=== PATIENT | male | born 1970 | race Caucasian/White ===

== ENCOUNTER 2020-10-05 15:03 | Inpatient (IN) | payer OTHER ==
[2020-10-05] MEDS ORDERED: SODIUM CHLORIDE 0.9% 1,000 ML IV STA (16:08)
[2020-10-05] MEDS ORDERED: ACETAMINOPHEN TAB 325 MG TAB PO STA (16:09)
[2020-10-05] MEDS ORDERED: IBUPROFEN 600 MG TAB PO STA (16:09)
[2020-10-05 16:39] LABS: Basophils # (A) 0.1 k/uL (0-0.2); Basophils % (A) 1 %; Eosinophils # (A) 0.1 k/uL (0-0.7); Eosinophils % (A) 1 %; HCT 45.7 % (39.0-53.0); HGB 15.4 gm/dL (13.0-17.5); Lymphocytes # (A) 1.9 k/uL (1.0-4.8); Lymphocytes % (A) 13 %; MCH 30.7 pg (25.0-35.0); MCHC 33.7 g/dL (31.0-37.0); MCV 91.1 fL (80.0-100.0); Mean Platelet Volume 6.6; Monocytes % (A) 7 %; Neutrophils # (A) 11.1 k/uL (1.3-7.7); Neutrophils % (A) 76 %; Platelet Count 435 k/uL (150-450); Poikilocytosis Slight; RBC 5.02 m/uL (4.30-5.90); RDW 13.7 % (11.5-15.5); WBC 14.7 k/uL (3.8-10.6)
[2020-10-05 16:48] LABS: ALT 33 U/L (4-49); AST 28 U/L (17-59); African American GFR (CKD) >90 (>60 ml/min/1.73 sqM); Albumin 3.9 g/dL (3.5-5.0); Alkaline Phosphatase 92 U/L (38-126); Amylase <30 U/L (30-110); Anion Gap 10 mmol/L; Blood Urea Nitrogen 9 mg/dL (9-20); Calcium 9.3 mg/dL (8.4-10.2); Carbon Dioxide 26 mmol/L (22-30); Chloride 94 mmol/L (98-107); Glucose 191 mg/dL (74-99); Lipase 33 U/L (23-300); Non-African American GFR(CKD) >90 (>60 ml/min/1.73 sqM); Potassium 4.3 mmol/L (3.5-5.1); Sodium 130 mmol/L (137-145); Total Bilirubin 1.3 mg/dL (0.2-1.3); Total Protein 7.3 g/dL (6.3-8.2)
[2020-10-05 17:21] LABS: Amorphous Sediment,Urine Rare /hpf; Appearance,Urine Cloudy (Clear); Bilirubin,Urine Negative (Negative); Blood,Urine Small (Negative); Color,Urine Yellow; Glucose,Urine (UA) Trace (Negative); Ketones,Urine Trace (Negative); Leukocyte Esterase,Urine Trace (Negative); Mucus,Urine Many /hpf; Nitrite,Urine Negative (Negative); PH, Urine 5.5 (5.0-8.0); Protein,Urine 2+ (Negative); RBC,Urine 2 /hpf (0-5); Specific Gravity,Urine 1.018 (1.001-1.035); WBC,Urine 5 /hpf (0-5)
--- NOTE | 2020-10-05 18:29 | CT ---
EXAMINATION TYPE: CT abdomen pelvis w con DATE OF EXAM: 10/05/2020 COMPARISON: None HISTORY: abdominal pain X [address] DLP: 2584.4 mGycm Automated exposure control for dose reduction was used. TECHNIQUE: Helical acquisition of images was performed from the lung bases through the pelvis. CONTRAST: Performed without Oral Contrast and with IV Contrast, patient injected with 100 mL of Isovue 300. FINDINGS: LUNG BASES: Right lower lobe calcified granuloma. Elevation of the left hemidiaphragm with left basil ar atelectasis. LIVER: Normal. BILIARY SYSTEM: Normal. PANCREAS: Normal. SPLEEN: Calcified granulomas. ADRENALS: Normal. KIDNEYS: Normal. BOWEL: No obstruction. There is proximal ascending colon thickening, inflammatory stranding, and abn ormal appearance of the appendix. Posterior to the cecum and within the region of the abnormal append ix there is a 4.5 x 3.7 x 6.2 cm fluid and gas collection. PERITONEUM: There is no sizable free air collection. There is no ascites. There is significant infla mmatory stranding in the right paracolic gutter. LYMPH NODES: No lymphadenopathy. PELVIS: Prominent prostate. Nondistended urinary bladder. VASCULATURE: No abdominal aortic aneurysm. MUSCULOSKELETAL: Degenerative changes of the spine. IMPRESSION: Thickening, irregularity, and inflammatory stranding of the appendix and proximal ascending colon. Nix spect acute appendicitis. A right lower quadrant fluid and gas collection within the region of the ab normal appendix measures 4.5 x 3.7 x 6.2 cm. Difficult to tell if this is associated with the abnorma lly dilated appendiceal lumen versus abscess. If clinically indicated, findings could be further eval uated with administration of oral contrast. No significant pneumoperitoneum or ascites. Dr. Jovanna Riojas discussed findings with YNOG Mullen via the phone on 10/05/2020 6:28 PM at 6:29 PM EST, and results were acknowledged.
[2020-10-05] MEDS ORDERED: PIPERACILLIN-TAZOBACTAM 3.375 GM in SODIUM CHLORIDE 0.9% 100 ML IVPB STA (18:32)
--- NOTE | 2020-10-05 18:33 | ED ---
Abdominal Pain HPI - General Chief Complaint: Abdominal Pain Stated Complaint: ABD pain Time Seen by Provider: 10/05/20 15:57 Source: patient Mode of arrival: ambulatory Limitations: no limitations - History of Present Illness Initial Comments: Patient is a 50-year-old male that presents to emergency room with a 2 day history of right lower quadrant pain. He notes that it started off as a mild discomfort. 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 He notes that he tried taking milk Magnesia fibrous foods drinking natural just to help with bowel movements. He notes that he had several bouts yesterday but it wasn't very much in quantity. He notes that it takes a lot of pain in the make of the ER. He notes that he was in significant amount of pain today that he came in for evaluation. He did not appear to be any discomfort while laying in bed in exam interview stating that his pain was a 3 out of 10 and does not any pain medication at this time. He was running a small fever. He denied any other issues or complaints at this time. 90 chest pain shortness breath headache nausea vomiting diarrhea constipation fever fatigue chills. - Related Data Home Medications Medication Instructions Recorded Confirmed Aspirin EC [Ecotrin Low Dose] 81 mg PO DAILY 10/05/20 10/05/20 Allergies Allergy/AdvReac Type Severity Reaction Status Date / Time No Known Allergies Allergy Verified 10/05/20 17:42 Review of Systems ROS Statement: Those systems with pertinent positive or pertinent negative responses have been documented in the HPI. ROS Other: All systems not noted in ROS Statement are negative. Past Medical History Past Medical History: Diabetes Mellitus History of Any Multi-Drug Resistant Organisms: None Reported Past Surgical History: No Surgical Hx Reported Past Psychological History: No Psychological Hx Reported Smoking Status: Never smoker Past Alcohol Use History: Occasional General Exam Limitations: no limitations General appearance: alert, in no apparent distress Head exam: Present: atraumatic, normocephalic, normal inspection Eye exam: Present: normal appearance, PERRL, EOMI. Absent: scleral icterus, conjunctival injection, periorbital swelling Respiratory exam: Present: normal lung sounds bilaterally Cardiovascular Exam: Present: regular rate, normal rhythm, normal heart sounds. Absent: systolic murmur, diastolic murmur, rubs, gallop, clicks GI/Abdominal exam: Present: soft, normal bowel sounds. Absent: distended, tenderness, guarding, rebound, rigid Expanded GI/Abdominal exam: Present: Rovsing's sign Extremities exam: Present: normal inspection, full ROM, normal capillary refill. Absent: tenderness, pedal edema, joint swelling, calf tenderness Neurological exam: Present: alert, oriented X3 Psychiatric exam: Present: normal affect, normal mood Skin exam: Present: warm, dry, intact, normal color. Absent: rash Course Vital Signs 10/05/20 10/05/20 15:05 18:01 Temperature 100.3 F H 98.1 F Pulse Rate 103 H 70 Respiratory 14 16 Rate Blood Pressure 144/99 137/72 O2 Sat by Pulse 96 95 Oximetry Medical Decision Making - Medical Decision Making 50-year-old male complaining of lower abdominal pain for the past 2 days. Labs, 1 L normal saline, 600 mg of Motrin, 650 mg of Tylenol, CT of the abdomen and pelvis ordered. Labs White blood cells 14.7 urine shows mild dehydration. Rest of labs unremarkable. Computed tomography scan shows acute appendicitis with possible abscess. 3.375 g of Zosyn ordered Case discussed with Dr. Keita, patient will be admitted. Dr. Barbosa was consulted and will accept the admit. - Lab Data Result diagrams: 10/05/20 16:25 10/05/20 16:25 Lab Results 10/05/20 10/05/20 10/05/20 Range/Units 16:25 16:25 16:25 WBC 14.7 H (3.8-10.6) k/uL RBC 5.02 (4.30-5.90) m/uL Hgb 15.4 (13.0-17.5) gm/dL Hct 45.7 (39.0-53.0) % MCV 91.1 (80.0-100.0) fL MCH 30.7 (25.0-35.0) pg MCHC 33.7 (31.0-37.0) g/dL RDW 13.7 (11.5-15.5) % Plt Count 435 (150-450) k/uL MPV 6.6 Neutrophils % 76 % Lymphocytes % 13 % Monocytes % 7 % Eosinophils % 1 % Basophils % 1 % Neutrophils # 11.1 H (1.3-7.7) k/uL Lymphocytes # 1.9 (1.0-4.8) k/uL Monocytes # 1.0 (0-1.0) k/uL Eosinophils # 0.1 (0-0.7) k/uL Basophils # 0.1 (0-0.2) k/uL Poikilocytosis Slight Sodium 130 L (137-145) mmol/L Potassium 4.3 (3.5-5.1) mmol/L Chloride 94 L (98-107) mmol/L Carbon Dioxide 26 (22-30) mmol/L Anion Gap 10 mmol/L BUN 9 (9-20) mg/dL Creatinine 0.75 (0.66-1.25) mg/dL Est GFR (CKD-EPI)AfAm >90 (>60 ml/min/1.73 sqM) Est GFR (CKD-EPI)NonAf >90 (>60 ml/min/1.73 sqM) Glucose 191 H (74-99) mg/dL Plasma Lactic Acid Rylan 1.3 (0.7-2.0) mmol/L Calcium 9.3 (8.4-10.2) mg/dL Total Bilirubin 1.3 (0.2-1.3) mg/dL AST 28 (17-59) U/L ALT 33 (4-49) U/L Alkaline Phosphatase 92 (38-126) U/L Troponin I (0.000-0.034) ng/mL Total Protein 7.3 (6.3-8.2) g/dL Albumin 3.9 (3.5-5.0) g/dL Amylase <30 L (30-110) U/L Lipase 33 (23-300) U/L Urine Color Urine Appearance (Clear) Urine pH (5.0-8.0) Ur Specific Theresa (1.001-1.035) Urine Protein (Negative) Urine Glucose (UA) (Negative) Urine Ketones (Negative) Urine Blood (Negative) Urine Nitrite (Negative) Urine Bilirubin (Negative) Urine Urobilinogen (<2.0) mg/dL Ur Leukocyte Esterase (Negative) Urine RBC (0-5) /hpf Urine WBC (0-5) /hpf Amorphous Sediment (None) /hpf Urine Mucus (None) /hpf 10/05/20 10/05/20 Range/Units 16:25 17:11 WBC (3.8-10.6) k/uL RBC (4.30-5.90) m/uL Hgb (13.0-17.5) gm/dL Hct (39.0-53.0) % MCV (80.0-100.0) fL MCH (25.0-35.0) pg MCHC (31.0-37.0) g/dL RDW (11.5-15.5) % Plt Count (150-450) k/uL MPV Neutrophils % % Lymphocytes % % Monocytes % % Eosinophils % % Basophils % % Neutrophils # (1.3-7.7) k/uL Lymphocytes # (1.0-4.8) k/uL Monocytes # (0-1.0) k/uL Eosinophils # (0-0.7) k/uL Basophils # (0-0.2) k/uL Poikilocytosis Sodium (137-145) mmol/L Potassium (3.5-5.1) mmol/L Chloride (98-107) mmol/L Carbon Dioxide (22-30) mmol/L Anion Gap mmol/L BUN (9-20) mg/dL Creatinine (0.66-1.25) mg/dL Est GFR (CKD-EPI)AfAm (>60 ml/min/1.73 sqM) Est GFR (CKD-EPI)NonAf (>60 ml/min/1.73 sqM) Glucose (74-99) mg/dL Plasma Lactic Acid Rylan (0.7-2.0) mmol/L Calcium (8.4-10.2) mg/dL Total Bilirubin (0.2-1.3) mg/dL AST (17-59) U/L ALT (4-49) U/L Alkaline Phosphatase (38-126) U/L Troponin I <0.012 (0.000-0.034) ng/mL Total Protein (6.3-8.2) g/dL Albumin (3.5-5.0) g/dL Amylase (30-110) U/L Lipase (23-300) U/L Urine Color Yellow Urine Appearance Cloudy (Clear) Urine pH 5.5 (5.0-8.0) Ur Specific Theresa 1.018 (1.001-1.035) Urine Protein 2+ H (Negative) Urine Glucose (UA) Trace H (Negative) Urine Ketones Trace H (Negative) Urine Blood Small H (Negative) Urine Nitrite Negative (Negative) Urine Bilirubin Negative (Negative) Urine Urobilinogen 3.0 (<2.0) mg/dL Ur Leukocyte Esterase Trace H (Negative) Urine RBC 2 (0-5) /hpf Urine WBC 5 (0-5) /hpf Amorphous Sediment Rare H (None) /hpf Urine Mucus Many H (None) /hpf - EKG Data -: EKG Interpreted by Me EKG shows normal: sinus rhythm Rate: normal EKG Comments: Ventricular rate 82 bpm, WV interval 206 ms, QRS duration 98 ms, QTC 439 ms, PRT axes 26/-14/-7. Normal sinus rhythm, inferior infarct age undetermined, abnormal ECG. - Radiology Data Radiology results: report reviewed, image reviewed CT the abdomen and pelvis: Thickening irregularity inflammatory straining of the appendix and proximal ascending: Suspect acute appendicitis. A right lower quadrant fluid and gas collection with in the region. Normal appendix measures 4.5 x 3.7 x 6.2 cm. Difficult to tell if this is associated with the abnormally dilated appendiceal lumen versus abscess. If clinically indicated findings to be further evaluated administration of oral contrast no significant pneumoperitoneum ascites. Disposition Clinical Impression: Abdominal pain, Acute appendicitis Disposition: ADMITTED IP TO THIS HOSP Condition: Stable Is patient prescribed a controlled substance at d/c from ED?: No Referrals: Julius Coyle DO [Primary Care Provider] - 1-2 days Time of Disposition: 18:58
[2020-10-05] MEDS ORDERED: NALOXONE 0.4 MG/ML 1 ML VIAL IV PRN ×2 (18:58→21:03)
[2020-10-05] MEDS ORDERED: ACETAMINOPHEN TAB 325 MG TAB PO PRN (18:58)
[2020-10-05] MEDS: SODIUM CHLORIDE 0.9% 1,000 ML IV SCH (19:45)
[2020-10-05] MEDS ORDERED: KETOROLAC 15 MG/ML 1 ML VIAL ONE (20:20)
[2020-10-05] MEDS ORDERED: MIDAZOLAM 2 MG/2 ML VIAL ONE (20:20)
[2020-10-05] MEDS ORDERED: NEOSTIGMINE 1 MG/ML 10 ML VIAL ONE (20:20)
[2020-10-05] MEDS ORDERED: LIDOCAINE 1% INJ 10MG/ML (20 ML MDV) ONE (20:20)
[2020-10-05] MEDS ORDERED: SUCCINYLCHOLINE CHLORIDE 100 MG/5 ML SYR IV ONE (20:20)
[2020-10-05] MEDS ORDERED: CLINDAMYCIN 150 MG/ML 4 ML VIAL ONE (20:20)
[2020-10-05] MEDS ORDERED: ONDANSETRON 4 MG/2 ML VIAL ONE (20:20)
[2020-10-05] MEDS ORDERED: ROCURONIUM 10 MG/ML (5 ML VIAL) IV ONE (20:20)
[2020-10-05] MEDS ORDERED: GLYCOPYRROLATE 0.2 MG/ML 2 ML VIAL ONE (20:20)
[2020-10-05] MEDS ORDERED: fentaNYL (PF) 50 MCG/ML 2 ML AMP ONE (20:20)
[2020-10-05] MEDS ORDERED: IV FLUID CONTINUATION 1,000 ML IV ONE (20:20)
[2020-10-05] MEDS ORDERED: PROPOFOL 10 MG/ML 20 ML VIAL IV ONE (20:20)
--- NOTE | 2020-10-05 20:23 | P.GSHP ---
History of Present Illness H&P Date: 10/05/20 Chief Complaint: Right lower quadrant pain Is a 50-year-old male with a one-week history of right lower quadrant pain. Patient's emergency found have appendicitis with evidence of abscess Past Medical History Past Medical History: Diabetes Mellitus History of Any Multi-Drug Resistant Organisms: None Reported Past Surgical History: No Surgical Hx Reported Past Psychological History: No Psychological Hx Reported Smoking Status: Never smoker Past Alcohol Use History: Occasional Medications and Allergies Home Medications Medication Instructions Recorded Confirmed Type Aspirin EC [Ecotrin Low Dose] 81 mg PO DAILY 10/05/20 10/05/20 History Allergies Allergy/AdvReac Type Severity Reaction Status Date / Time No Known Allergies Allergy Verified 10/05/20 17:42 Surgical - Exam Vital Signs Temp Pulse Resp BP Pulse Ox 100.3 F H 103 H 14 144/99 96 10/05/20 15:05 10/05/20 15:05 10/05/20 15:05 10/05/20 15:05 10/05/20 15:05 - General well developed, well nourished, no distress - Eyes PERRL - ENT normal pinna - Neck no masses - Respiratory normal expansion - Cardiovascular Rhythm: regular - Abdomen Tender right lower quadrant Abdomen: soft Results - Labs 10/05/20 16:25 10/05/20 16:25 Abnormal Lab Results - Last 24 Hours (Table) 10/05/20 10/05/20 10/05/20 Range/Units 16:25 16:25 17:11 WBC 14.7 H (3.8-10.6) k/uL Neutrophils # 11.1 H (1.3-7.7) k/uL Sodium 130 L (137-145) mmol/L Chloride 94 L (98-107) mmol/L Glucose 191 H (74-99) mg/dL Amylase <30 L (30-110) U/L Urine Protein 2+ H (Negative) Urine Glucose (UA) Trace H (Negative) Urine Ketones Trace H (Negative) Urine Blood Small H (Negative) Ur Leukocyte Esterase Trace H (Negative) Amorphous Sediment Rare H (None) /hpf Urine Mucus Many H (None) /hpf Diabetes panel 10/05/20 Range/Units 16:25 Sodium 130 L (137-145) mmol/L Potassium 4.3 (3.5-5.1) mmol/L Chloride 94 L (98-107) mmol/L Carbon Dioxide 26 (22-30) mmol/L BUN 9 (9-20) mg/dL Creatinine 0.75 (0.66-1.25) mg/dL Glucose 191 H (74-99) mg/dL Calcium 9.3 (8.4-10.2) mg/dL AST 28 (17-59) U/L ALT 33 (4-49) U/L Alkaline Phosphatase 92 (38-126) U/L Total Protein 7.3 (6.3-8.2) g/dL Albumin 3.9 (3.5-5.0) g/dL Calcium panel 10/05/20 Range/Units 16:25 Calcium 9.3 (8.4-10.2) mg/dL Albumin 3.9 (3.5-5.0) g/dL Pituitary panel 10/05/20 Range/Units 16:25 Sodium 130 L (137-145) mmol/L Potassium 4.3 (3.5-5.1) mmol/L Chloride 94 L (98-107) mmol/L Carbon Dioxide 26 (22-30) mmol/L BUN 9 (9-20) mg/dL Creatinine 0.75 (0.66-1.25) mg/dL Glucose 191 H (74-99) mg/dL Calcium 9.3 (8.4-10.2) mg/dL Adrenal panel 10/05/20 Range/Units 16:25 Sodium 130 L (137-145) mmol/L Potassium 4.3 (3.5-5.1) mmol/L Chloride 94 L (98-107) mmol/L Carbon Dioxide 26 (22-30) mmol/L BUN 9 (9-20) mg/dL Creatinine 0.75 (0.66-1.25) mg/dL Glucose 191 H (74-99) mg/dL Calcium 9.3 (8.4-10.2) mg/dL Total Bilirubin 1.3 (0.2-1.3) mg/dL AST 28 (17-59) U/L ALT 33 (4-49) U/L Alkaline Phosphatase 92 (38-126) U/L Total Protein 7.3 (6.3-8.2) g/dL Albumin 3.9 (3.5-5.0) g/dL Assessment and Plan Assessment: Acute appendicitis. Patient will undergo laparoscopic appendectomy. The risks of open appendectomy was discussed with patient.
[2020-10-05] MEDS ORDERED: LIDOCAINE 1%-EPI 1:100,000 20 ML VIAL SQ ONE (20:38)
[2020-10-05] MEDS ORDERED: LACTATED RINGERS 1,000 ML IV ONE ×2 (20:45→21:03)
--- NOTE | 2020-10-05 21:07 | P.OP ---
Date of Procedure: 10/05/20 Preoperative Diagnosis: Acute appendicitis Postoperative Diagnosis: Ruptured appendicitis with abscess Procedure(s) Performed: Laparoscopic appendectomy Anesthesia: CORRINE Surgeon: Sandeep Stanley Estimated Blood Loss (ml): 5 Pathology: other (Appendiceal remnant) Condition: stable Disposition: PACU Description of Procedure: The patient's placed on the operating table in the supine position. The patient received general anesthesia. The abdomen was prepped and draped in the usual sterile fashion. The skin was anesthetized 1% local Xylocaine at the trocar sites. Using an 11 blade the skin was incised at the umbilicus. The umbilicus was grasped with a Pablo clamp and then a Veress needle was placed into the peritoneal cavity. Position of the Veress needle was confirmed with positive drop test. After adequate insufflation a 5 mm trocar was placed into the peritoneal cavity. The abdomen was further insufflated. And then the laparoscope was placed in the peritoneal cavity. Next a 5 mm trocar was placed in the midline suprapubic position. And then a 10 mm trocar was placed in the midline epigastric position. The patient was rotated with the right side up and in Trendelenburg. There was a significant inflammatory response in the right lower quadrant. There was omentum stuck in her lower quadrant. The omentum was dissected with traction. An appendiceal abscess was entered. This was aspirated approximately 30 mL. Fluid was aspirated. At this point the cecal base was examined. The appendix appeared to be obliterated there was a small appendiceal stump this was ligated with the Endoloop. The area of the abscess cavity was dissected and the remainder the appendix was dissected free and sent to pathology. The abdomen abdomen was irrigated a VIVIAN drains placed in the esophagus and brought through the midline 5 mm trocar site. The trochars withdrawn. Skin was closed with interrupted 3-0 Monocryl suture. Dermabond was applied.
[2020-10-05] MEDS ORDERED: ACETAMINOPHEN IV (For NPO) 1,000 MG/100 ML VIAL IVPB ONE (21:13)
[2020-10-05] MEDS: HYDROmorphone 0.5 MG/0.5 ML SYRINGE IVP PRN (21:25)
[2020-10-05] MEDS ORDERED: ACETAMINOPHEN IV (For NPO) 1,000 MG in EMPTY BAG 1 BAG IVPB ONE (21:30)
[2020-10-06] MEDS: PIPERACILLIN-TAZOBACTAM 3.375 GM in SODIUM CHLORIDE 0.9% 100 ML IVPB SCH ×3 (03:23→19:20)
[2020-10-06] MEDS: KETOROLAC 15 MG/ML 1 ML VIAL IVP SCH ×4 (03:24→17:11)
[2020-10-06] MEDS: HYDROmorphone 0.5 MG/0.5 ML SYRINGE IVP PRN ×3 (03:24→10:18)
[2020-10-06] MEDS: ONDANSETRON 4 MG/2 ML VIAL IVP PRN ×3 (03:30→23:52)
[2020-10-06] MEDS ORDERED: CALCIUM CARBONATE 500 MG CHEWABLE PO PRN (07:14)
[2020-10-06] MEDS: SODIUM CHLORIDE 0.9% 1,000 ML IV SCH ×4 (07:18→23:55)
[2020-10-06] MEDS: ENOXAPARIN 40 MG/0.4 ML SYRINGE SQ SCH (07:19)
[2020-10-06 09:21] LABS: HCT 42.2 % (39.6-50.0); MCH 30.2 pg (27.0-32.0); MCHC 33.2 g/dL (32.0-37.0); MCV 91.1 fL (80.0-97.0); Mean Platelet Volume 8.2 fL (9.5-12.2); Platelet Count 372 X 10*3/uL (140-440); RBC 4.63 X 10*6/uL (4.40-5.60); RDW 12.6 % (11.5-14.5)
[2020-10-06] MEDS: PANTOPRAZOLE 40 MG/10 ML VIAL IVP SCH (10:17)
--- NOTE | 2020-10-06 11:43 | P.PN ---
Subjective Progress Note Date: 10/06/20 CHIEF COMPLAINT: Acute appendicitis HISTORY OF PRESENT ILLNESS: Patient is status post laparoscopic appendectomy for ruptured appendicitis with abscess. Patient is complaining of severe heartburn with acid reflux and indigestion. He is having abdominal pain. Denies any vomiting. No flatus or BM. Afebrile. WBC is down from 14.7-11.20 PHYSICAL EXAM: VITAL SIGNS: Reviewed. GENERAL: Well-developed in no acute distress. HEENT: No sclera icterus. Extraocular movements grossly intact. Moist buccal mucosa. Head is atraumatic, normocephalic. ABDOMEN: Soft. Mildly distended. Incision sites clean dry and intact NEUROLOGIC: Alert and oriented. Cranial nerves II through XII grossly intact. ASSESSMENT: 1. Ruptured appendicitis with abscess status post laparoscopic appendectomy PLAN: -Add IV Protonix daily for heartburn and indigestion -Continue Tums as needed -Continue clear liquid diet -Continue antibiotics -Continue pain medication as needed -Encourage patient to ambulate and use incentive spirometer -GI prophylaxis Protonix and DVT prophylaxis Lovenox Physician Integrity Analyst note has been reviewed by physician. Signing provider agrees with the documented findings, assessment, and plan of care. Objective - Vital Signs Vital signs: Vital Signs Temp 98.4 F 10/06/20 10:09 Pulse 94 10/06/20 10:09 Resp 20 10/06/20 10:09 BP 139/86 10/06/20 10:09 Pulse Ox 92 L 10/06/20 10:09 Intake & Output 10/05/20 10/06/20 10/06/20 18:59 06:59 18:59 Intake Total 1000 Output Total 940 Balance 60 Weight 127.686 kg 127.686 kg Intake: IV 1000 Output: Drainage 130 Abdomen 130 Urine 800 Estimated Blood Loss 10 Other: Voiding Method Urinal # Bowel Movements 0 - Labs CBC & Chem 7: 10/06/20 05:28 10/05/20 16:25 Labs: Abnormal Lab Results - Last 24 Hours (Table) 10/05/20 10/05/20 10/05/20 Range/Units 16:25 16:25 17:11 WBC 14.7 H (3.8-10.6) k/uL MPV (9.5-12.2) fL Neutrophils # 11.1 H (1.3-7.7) k/uL Sodium 130 L (137-145) mmol/L Chloride 94 L (98-107) mmol/L Glucose 191 H (74-99) mg/dL Amylase <30 L (30-110) U/L Urine Protein 2+ H (Negative) Urine Glucose (UA) Trace H (Negative) Urine Ketones Trace H (Negative) Urine Blood Small H (Negative) Ur Leukocyte Esterase Trace H (Negative) Amorphous Sediment Rare H (None) /hpf Urine Mucus Many H (None) /hpf 10/06/20 Range/Units 05:28 WBC 11.20 H (3.8-10.6) k/uL MPV 8.2 L (9.5-12.2) fL Neutrophils # (1.3-7.7) k/uL Sodium (137-145) mmol/L Chloride (98-107) mmol/L Glucose (74-99) mg/dL Amylase (30-110) U/L Urine Protein (Negative) Urine Glucose (UA) (Negative) Urine Ketones (Negative) Urine Blood (Negative) Ur Leukocyte Esterase (Negative) Amorphous Sediment (None) /hpf Urine Mucus (None) /hpf
[2020-10-06 13:10] LABS: Basophils # (A) 0.05 X 10*3/uL (0.00-0.10); Basophils % (A) 0.4 %; Eosinophils # (A) 0.01 X 10*3/uL (0.04-0.35); Eosinophils % (A) 0.1 %; Lymphocytes # (A) 0.88 X 10*3/uL (0.90-5.00); Lymphocytes % (A) 7.9 %; Monocytes # (A) 0.56 X 10*3/uL (0.20-1.00); Neutrophils # (A) 9.66 X 10*3/uL (1.80-7.70); Neutrophils % (A) 86.2 %
[2020-10-06 13:37] LABS: Albumin 3.6 g/dL (3.80-4.90); Albumin/Globulin Ratio 1.29 (1.60-3.17); Anion Gap 14.4 mmol/L (4.00-12.00); Calcium 8.7 mg/dL (8.7-10.3); Carbon Dioxide 22.6 mmol/L (21.6-31.8); Globulin 2.8 g/dL (1.6-3.3); Non-African American GFR(CKD) 102.7 (60.0-200.0); Potassium 4.5 mmol/L (3.5-5.5); Total Bilirubin 1.5 mg/dL (0.3-1.2); Total Protein 6.4 g/dL (6.2-8.2)
[2020-10-06] MEDS: HYDROcodone/APAP 5-325MG 1 EACH TAB PO PRN (19:20)
--- NOTE | 2020-10-06 23:28 | P.CONS ---
History of Present Illness - Reason for Consult Consult date: 10/06/20 Medical management. - Chief Complaint Abdominal pain - History of Present Illness Patient is a 50-year-old male with a known history of diabetes type 2 currently diet controlled presents to ER with complaints of right lower quadrant abdominal pain. Patient states that he has been having pain for the past 1 week. Patient is having on and off discomfort. Patient start to be constipated and took stool softeners. Since the pain is not improving he presents to ER for evaluation. Pain is 7 out of 10 in severity. Denied any diarrhea. Denies recent illnesses. On admission patient was febrile with T-max 100.3 respiration 14 blood pressure 144/99 pulse ox 96% on room air. CT of the abdomen pelvis showed thickening irregularity and inflammatory stranding at the appendix and proximal ascending colon. Suspected acute appendicitis. Right lower quadrant fluid and gas collection within the region of the abnormal appendix measures 4.5 x 3.7 x 6.2 cm. Laboratory showed WBC 14.7 hemoglobin 15.4 and platelets 435 Sodium 130 potassium 4.3 chloride 94 BUN 9 and creatinine 0.75 amylase lipase not elevated Troponin x1 - Urinalysis is negative for infection. Past Medical History Past Medical History: Diabetes Mellitus History of Any Multi-Drug Resistant Organisms: None Reported Past Surgical History: No Surgical Hx Reported Past Anesthesia/Blood Transfusion Reactions: No Reported Reaction Past Psychological History: No Psychological Hx Reported Smoking Status: Never smoker Past Alcohol Use History: Occasional Medications and Allergies Home Medications Medication Instructions Recorded Confirmed Type Aspirin EC [Ecotrin Low Dose] 81 mg PO DAILY 10/05/20 10/05/20 History Allergies Allergy/AdvReac Type Severity Reaction Status Date / Time No Known Allergies Allergy Verified 10/05/20 17:42 Physical Exam Vitals: Vital Signs Temp Pulse Pulse Pulse Resp BP BP 10/06/20 10:09 98.4 F 94 20 139/86 10/06/20 07:00 99.4 F 107 H 18 155/84 10/06/20 01:46 99.6 F 99 17 124/72 10/06/20 00:03 18 10/05/20 21:46 62 18 113/57 10/05/20 21:30 61 18 122/69 10/05/20 21:15 67 18 120/67 10/05/20 21:10 98 F 72 18 117/69 10/05/20 19:34 98.8 F 72 96 H 127/82 10/05/20 18:01 98.1 F 70 16 137/72 10/05/20 15:05 100.3 F H 103 H 14 144/99 Pulse Ox 10/06/20 10:09 92 L 10/06/20 07:00 91 L 10/06/20 01:46 92 L 10/06/20 00:03 10/05/20 21:46 96 10/05/20 21:30 98 10/05/20 21:15 98 10/05/20 21:10 95 10/05/20 19:34 96 10/05/20 18:01 95 10/05/20 15:05 96 Intake and Output 10/05/20 10/06/20 10/06/20 22:59 06:59 14:59 Intake Total 1000 Output Total 100 840 Balance 900 -840 Intake: IV 1000 Output: Drainage 90 40 Abdomen 90 40 Urine 800 Estimated Blood Loss 10 Other: Voiding Method Urinal # Bowel Movements 0 Weight 127.686 kg PHYSICAL EXAMINATION: Patient is lying in the bed comfortably, no acute distress, awake alert and oriented.. HEENT: Normocephalic. Neck is supple. Pupils reactive. Nostrils clear. Oral cavi ty is moist. Ears reveal no drainage. Neck reveals no JVD, carotid bruits, or thyromegaly. CHEST EXAMINATION: Trachea is central. Symmetrical expansion. Lung kelly clear to auscultation and percussion. Bibasilar diminished air entry. CARDIAC: Normal S1, S2 with no gallops. No murmurs ABDOMEN: Soft. Bowel sounds normal. No organomegaly. No abdominal bruits. Right lower quadrant tenderness. Extremities: reveal no edema. No clubbing or cyanosis Neurologically awake, alert, oriented x3 with well-coordinated movements. No focal deficits noted Skin: No rash or skin lesions. Psychiatric: Coperative. Nonsuicidal Musculoskeletal: No joint swelling or deformity. Normal range of motion. Results CBC & Chem 7: 10/06/20 05:28 10/06/20 05:28 Labs: Abnormal Lab Results - Last 24 Hours (Table) 10/05/20 10/05/20 10/05/20 Range/Units 16:25 16:25 17:11 WBC 14.7 H (3.8-10.6) k/uL MPV (9.5-12.2) fL Neutrophils # 11.1 H (1.3-7.7) k/uL Sodium 130 L (137-145) mmol/L Chloride 94 L (98-107) mmol/L Glucose 191 H (74-99) mg/dL Amylase <30 L (30-110) U/L Urine Protein 2+ H (Negative) Urine Glucose (UA) Trace H (Negative) Urine Ketones Trace H (Negative) Urine Blood Small H (Negative) Ur Leukocyte Esterase Trace H (Negative) Amorphous Sediment Rare H (None) /hpf Urine Mucus Many H (None) /hpf 10/06/20 Range/Units 05:28 WBC 11.20 H (3.8-10.6) k/uL MPV 8.2 L (9.5-12.2) fL Neutrophils # (1.3-7.7) k/uL Sodium (137-145) mmol/L Chloride (98-107) mmol/L Glucose (74-99) mg/dL Amylase (30-110) U/L Urine Protein (Negative) Urine Glucose (UA) (Negative) Urine Ketones (Negative) Urine Blood (Negative) Ur Leukocyte Esterase (Negative) Amorphous Sediment (None) /hpf Urine Mucus (None) /hpf Assessment and Plan Assessment: Acute appendicitis/ruptured appendicitis with abscess. Sepsis secondary to above. Patient was febrile and had leukocytosis on admission. Hypovolemic hyponatremia Hyperglycemia with uncontrolled diabetes type 2. GI and DVT prophylaxis. Plan: Patient is status post laparoscopic appendectomy with drain tube placement. Follow-up culture reports. Continue with antibiotics of Zosyn. Continue with pain management. Patient blood sugar is greater than 200. A1c was ordered. Continue with insulin sliding scale at this time and continue to follow closely. Further recommendations based on clinical course. Follow-up CBC and BMP tomorrow.
[2020-10-07] MEDS: KETOROLAC 15 MG/ML 1 ML VIAL IVP SCH ×4 (00:08→17:43)
[2020-10-07] MEDS: PIPERACILLIN-TAZOBACTAM 3.375 GM in SODIUM CHLORIDE 0.9% 100 ML IVPB SCH ×3 (02:28→17:43)
[2020-10-07] MEDS: PANTOPRAZOLE 40 MG/10 ML VIAL IVP SCH (07:49)
[2020-10-07] MEDS: ENOXAPARIN 40 MG/0.4 ML SYRINGE SQ SCH (07:51)
[2020-10-07] MEDS: INSULIN ASPART (NovoLOG) 100 UNIT/ML VIAL SQ SCH ×4 (07:51→20:27)
[2020-10-07 09:52] LABS: Anion Gap 10.3 mmol/L (4.00-12.00); BUN/Creat Ratio 16.25 Ratio (12.00-20.00); Calcium 8.2 mg/dL (8.7-10.3); Carbon Dioxide 23.7 mmol/L (21.6-31.8); Non-African American GFR(CKD) 102.7 (60.0-200.0); Potassium 5.1 mmol/L (3.5-5.5)
[2020-10-07 10:07] LABS: HCT 40.9 % (39.6-50.0); HGB 13.2 g/dL (13.0-17.0); MCH 29.5 pg (27.0-32.0); MCHC 32.3 g/dL (32.0-37.0); MCV 91.3 fL (80.0-97.0); Mean Platelet Volume 8.9 fL (9.5-12.2); Platelet Count 398 X 10*3/uL (140-440); RBC 4.48 X 10*6/uL (4.40-5.60); RDW 12.8 % (11.5-14.5); WBC 14.49 X 10*3/uL (4.50-10.00)
[2020-10-07] MEDS: SODIUM CHLORIDE 0.9% 1,000 ML IV SCH ×2 (10:35→17:44)
[2020-10-07 11:15] LABS: Basophils # (A) 0.03 X 10*3/uL (0.00-0.10); Basophils % (A) 0.2 %; Eosinophils # (A) 0.02 X 10*3/uL (0.04-0.35); Eosinophils % (A) 0.1 %; Lymphocytes # (A) 1.45 X 10*3/uL (0.90-5.00); Monocytes % (A) 4.1 %
--- NOTE | 2020-10-07 11:37 | P.PN ---
Subjective Progress Note Date: 10/07/20 CHIEF COMPLAINT: Acute appendicitis HISTORY OF PRESENT ILLNESS: Patient is status post laparoscopic appendectomy for ruptured appendicitis with abscess. Patient states that he is feeling better today. His heartburn has improved. He denies any nausea or vomiting. He did have a bowel movement. He did have a temp of 100.2 last night heart rate 107 his white count has increased from 11.2-14.49. Sodium 130 this morning patient is afebrile and tachycardia resolved. He does admit to mild cough. He says he has pain in the abdomen when taking in the deep breaths. PHYSICAL EXAM: VITAL SIGNS: Reviewed. GENERAL: Well-developed in no acute distress. HEENT: No sclera icterus. Extraocular movements grossly intact. Moist buccal mucosa. Head is atraumatic, normocephalic. ABDOMEN: Soft. Mildly distended. Incision sites clean dry and intact NEUROLOGIC: Alert and oriented. Cranial nerves II through XII grossly intact. ASSESSMENT: 1. Ruptured appendicitis with abscess status post laparoscopic appendectomy 2. Possible atelectasis contribute to fever and elevated white count PLAN: -Advance diet to full liquids -Continue antibiotics -Continue pain medication as needed -Encourage patient to ambulate and use incentive spirometer -GI prophylaxis Protonix and DVT prophylaxis Lovenox Physician School Bus Driver/Mechanic note has been reviewed by physician. Signing provider agrees with the documented findings, assessment, and plan of care. Objective - Vital Signs Vital signs: Vital Signs Temp 97.9 F 10/07/20 10:39 Pulse 92 10/07/20 07:04 Resp 16 10/07/20 10:39 BP 136/81 10/07/20 07:04 Pulse Ox 96 10/07/20 10:39 Intake & Output 10/06/20 10/07/20 10/07/20 18:59 06:59 18:59 Output Total 830 520 Balance -830 -520 Output: Drainage 30 20 Abdomen 30 20 Urine 800 500 Other: Voiding Method Urinal Urinal - Labs CBC & Chem 7: 10/07/20 05:29 10/07/20 05:29 Labs: Abnormal Lab Results - Last 24 Hours (Table) 10/06/20 10/06/20 10/07/20 Range/Units 05:28 05:28 05:29 WBC 14.49 H (4.50-10.00) X 10*3/uL Plt Count Comment A MPV 8.9 L (9.5-12.2) fL Immature Gran # 0.09 H (0.00-0.04) X 10*3/uL Neutrophils # 9.66 H 12.30 H (1.80-7.70) X 10*3/uL Lymphocytes # 0.88 L (0.90-5.00) X 10*3/uL Eosinophils # 0.01 L 0.02 L (0.04-0.35) X 10*3/uL Sodium 133 L (135-145) mmol/L Anion Gap 14.40 H (4.00-12.00) mmol/L Glucose 262 H (70-110) mg/dL Calcium (8.7-10.3) mg/dL Total Bilirubin 1.5 H (0.3-1.2) mg/dL Albumin 3.60 L (3.80-4.90) g/dL Albumin/Globulin Ratio 1.29 L (1.60-3.17) g/dL 10/07/20 Range/Units 05:29 WBC (4.50-10.00) X 10*3/uL Plt Count Comment MPV (9.5-12.2) fL Immature Gran # (0.00-0.04) X 10*3/uL Neutrophils # (1.80-7.70) X 10*3/uL Lymphocytes # (0.90-5.00) X 10*3/uL Eosinophils # (0.04-0.35) X 10*3/uL Sodium 130 L (135-145) mmol/L Anion Gap (4.00-12.00) mmol/L Glucose 233 H (70-110) mg/dL Calcium 8.2 L (8.7-10.3) mg/dL Total Bilirubin (0.3-1.2) mg/dL Albumin (3.80-4.90) g/dL Albumin/Globulin Ratio (1.60-3.17) g/dL
[2020-10-07 14:08] LABS: Hemoglobin A1C 10.2 % (4.0-6.0)
[2020-10-07 20:45] LABS: Glucose,Whole Blood 226 mg/dL (75-99)
[2020-10-07] MEDS: HYDROmorphone 0.5 MG/0.5 ML SYRINGE IVP PRN (23:18)
--- NOTE | 2020-10-08 01:17 | P.PN ---
Subjective Progress Note Date: 10/07/20 Principal diagnosis: Acute appendicitis/ruptured appendicitis with abscess. Patient is a 50-year-old male with a known history of diabetes type 2 currently diet controlled presents to ER with complaints of right lower quadrant abdominal pain. Patient states that he has been having pain for the past 1 week. Patient is having on and off discomfort. Patient start to be constipated and took stool softeners. Since the pain is not improving he presents to ER for evaluation. P ain is 7 out of 10 in severity. Denied any diarrhea. Denies recent illnesses. On admission patient was febrile with T-max 100.3 respiration 14 blood pressure 144/99 pulse ox 96% on room air. CT of the abdomen pelvis showed thickening irregularity and inflammatory stranding at the appendix and proximal ascending colon. Suspected acute appendicitis. Right lower quadrant fluid and gas collection within the region of the abnormal appendix measures 4.5 x 3.7 x 6.2 cm. Laboratory showed WBC 14.7 hemoglobin 15.4 and platelets 435 Sodium 130 potassium 4.3 chloride 94 BUN 9 and creatinine 0.75 amylase lipase not elevated Troponin x1 - Urinalysis is negative for infection. 10/07/2020 Patient is currently resting in the bed comfortably. More awake alert and oriented. Feels better today. Patient did have T-max of 100.2 yesterday evening. Currently afebrile. Encourage incentive spirometry. Denied any complaints of chest pain or shortness of breath. Tolerating liquid diet. Laboratory data showed WBC count increased to 14.4 today. Sodium 130 potassium 5.1 chloride 96 BUN 30 and creatinine 0.8 and blood sugar is 233. Patient is being continued on insulin sliding scale. A1c level is 10.2 patient will be started on low-dose insulin. Current medications reviewed. Objective - Vital Signs Vital signs: Vital Signs Temp 97.9 F 10/07/20 10:39 Pulse 92 10/07/20 07:04 Resp 16 10/07/20 10:39 BP 136/81 10/07/20 07:04 Pulse Ox 96 10/07/20 10:39 Intake & Output 10/06/20 10/07/20 10/07/20 18:59 06:59 18:59 Output Total 830 520 Balance -830 -520 Output: Drainage 30 20 Abdomen 30 20 Urine 800 500 Other: Voiding Method Urinal Urinal - Exam PHYSICAL EXAMINATION: Patient is lying in the bed comfortably, no acute distress, awake alert and oriented.. HEENT: Normocephalic. Neck is supple. Pupils reactive. Nostrils clear. Oral cavity is moist. Ears reveal no drainage. Neck reveals no JVD, carotid bruits, or thyromegaly. CHEST EXAMINATION: Trachea is central. Symmetrical expansion. Lung kelly clear to auscultation and percussion. Bibasilar diminished air entry. CARDIAC: Normal S1, S2 with no gallops. No murmurs ABDOMEN: Soft. Bowel sounds normal. No organomegaly. No abdominal bruits. Right lower quadrant tenderness. Extremities: reveal no edema. No clubbing or cyanosis Neurologically awake, alert, oriented x3 with well-coordinated movements. No focal deficits noted Skin: No rash or skin lesions. Psychiatric: Coperative. Nonsuicidal Musculoskeletal: No joint swelling or deformity. Normal range of motion. - Labs CBC & Chem 7: 10/07/20 05:29 10/07/20 05:29 Labs: Abnormal Lab Results - Last 24 Hours (Table) 10/06/20 10/06/20 10/07/20 Range/Units 05:28 05:28 05:29 WBC 14.49 H (4.50-10.00) X 10*3/uL Plt Count Comment A MPV 8.9 L (9.5-12.2) fL Immature Gran # 0.09 H (0.00-0.04) X 10*3/uL Neutrophils # 9.66 H 12.30 H (1.80-7.70) X 10*3/uL Lymphocytes # 0.88 L (0.90-5.00) X 10*3/uL Eosinophils # 0.01 L 0.02 L (0.04-0.35) X 10*3/uL Sodium 133 L (135-145) mmol/L Anion Gap 14.40 H (4.00-12.00) mmol/L Glucose 262 H (70-110) mg/dL Calcium (8.7-10.3) mg/dL Total Bilirubin 1.5 H (0.3-1.2) mg/dL Albumin 3.60 L (3.80-4.90) g/dL Albumin/Globulin Ratio 1.29 L (1.60-3.17) g/dL 10/07/20 Range/Units 05:29 WBC (4.50-10.00) X 10*3/uL Plt Count Comment MPV (9.5-12.2) fL Immature Gran # (0.00-0.04) X 10*3/uL Neutrophils # (1.80-7.70) X 10*3/uL Lymphocytes # (0.90-5.00) X 10*3/uL Eosinophils # (0.04-0.35) X 10*3/uL Sodium 130 L (135-145) mmol/L Anion Gap (4.00-12.00) mmol/L Glucose 233 H (70-110) mg/dL Calcium 8.2 L (8.7-10.3) mg/dL Total Bilirubin (0.3-1.2) mg/dL Albumin (3.80-4.90) g/dL Albumin/Globulin Ratio (1.60-3.17) g/dL Assessment and Plan Assessment: Temp 100.2, likley due to atelectasis. Resolved now. Encourage incentive spirometry. Acute appendicitis/ruptured appendicitis with abscess. Sepsis secondary to above. Patient was febrile and had leukocytosis on admission. Hypovolemic hyponatremia Hyperglycemia with uncontrolled diabetes type 2.A1c level 10.2 GI and DVT prophylaxis. Plan: Patient is status post laparoscopic appendectomy with drain tube placement. Follow-up culture reports. Continue with antibiotics of Zosyn. Continue with pain management. Patient blood sugar is greater than 200. A1c level 10.2 . Continue with insulin sliding scale at this time, added levemir and continue to follow closely. Further recommendations based on clinical course. Follow-up CBC and BMP tomorrow. Time with Patient: Greater than 30
[2020-10-08] MEDS: INSULIN DETEMIR (LEVEMIR) 100 UNIT/ML SYR SQ SCH ×2 (03:13→22:05)
[2020-10-08] MEDS: PIPERACILLIN-TAZOBACTAM 3.375 GM in SODIUM CHLORIDE 0.9% 100 ML IVPB SCH ×3 (03:14→19:42)
[2020-10-08] MEDS: SODIUM CHLORIDE 0.9% 1,000 ML IV SCH ×3 (03:14→20:23)
[2020-10-08 07:16] LABS: Glucose,Whole Blood 206 mg/dL (75-99)
[2020-10-08] MEDS: PANTOPRAZOLE 40 MG/10 ML VIAL IVP SCH (09:29)
[2020-10-08] MEDS: INSULIN ASPART (NovoLOG) 100 UNIT/ML VIAL SQ SCH ×4 (09:30→22:04)
[2020-10-08] MEDS: ENOXAPARIN 40 MG/0.4 ML SYRINGE SQ SCH (09:30)
[2020-10-08 09:31] LABS: Basophils # (A) 0.02 X 10*3/uL (0.00-0.10); Basophils % (A) 0.2 %; Eosinophils # (A) 0.07 X 10*3/uL (0.04-0.35); Eosinophils % (A) 0.6 %; HCT 37.1 % (39.6-50.0); HGB 12.3 g/dL (13.0-17.0); Lymphocytes # (A) 1.19 X 10*3/uL (0.90-5.00); Lymphocytes % (A) 10.4 %; MCH 30.1 pg (27.0-32.0); MCHC 33.2 g/dL (32.0-37.0); MCV 90.9 fL (80.0-97.0); Mean Platelet Volume 8.4 fL (9.5-12.2); Monocytes # (A) 0.48 X 10*3/uL (0.20-1.00); Monocytes % (A) 4.2 %; Neutrophils # (A) 9.57 X 10*3/uL (1.80-7.70); Neutrophils % (A) 83.6 %; Platelet Count 430 X 10*3/uL (140-440); RBC 4.08 X 10*6/uL (4.40-5.60); RDW 12.7 % (11.5-14.5); WBC 11.44 X 10*3/uL (4.50-10.00)
[2020-10-08 10:12] LABS: Anion Gap 10.3 mmol/L (4.00-12.00); Calcium 8.2 mg/dL (8.7-10.3); Carbon Dioxide 26.7 mmol/L (21.6-31.8); Non-African American GFR(CKD) 115.6 (60.0-200.0); Potassium 4.1 mmol/L (3.5-5.5)
--- NOTE | 2020-10-08 11:37 | P.PN ---
Subjective Progress Note Date: 10/08/20 CHIEF COMPLAINT: Acute appendicitis HISTORY OF PRESENT ILLNESS: Patient is status post laparoscopic appendectomy for ruptured appendicitis with abscess. Patient is feeling better each day. His pain is controlled. He is afebrile. Head minimal tachycardia with a heart rate of 103 now down to 90. Denies any nausea or vomiting. Tolerating diet. Having bowel movements. VIVIAN drain with 20 mL sanguinous output this morning. WBC turning downwards to 11.44 hemoglobin 12.3 blood sugar 206 Patient seen and examined with Dr. alvarenga PHYSICAL EXAM: VITAL SIGNS: Reviewed. GENERAL: Well-developed in no acute distress. HEENT: No sclera icterus. Extraocular movements grossly intact. Moist buccal mucosa. Head is atraumatic, normocephalic. ABDOMEN: Soft. Nondistended Incision sites clean dry and intact NEUROLOGIC: Alert and oriented. Cranial nerves II through XII grossly intact. ASSESSMENT: 1. Ruptured appendicitis with abscess status post laparoscopic appendectomy 2. Possible atelectasis contribute to fever and elevated white count PLAN: -Advance diet to regular -Continue antibiotics -Continue pain medication as needed -Encourage patient to ambulate in hallway and use incentive spirometer -Blood sugar management per medicine service -GI prophylaxis Protonix and DVT prophylaxis Lovenox Physician Tip Cementer note has been reviewed by physician. Signing provider agrees with the documented findings, assessment, and plan of care. Objective - Vital Signs Vital signs: Vital Signs Temp 98.4 F 10/08/20 08:28 Pulse 86 10/08/20 08:28 Resp 16 10/08/20 08:28 BP 120/74 10/08/20 08:28 Pulse Ox 93 L 10/08/20 08:28 Intake & Output 10/07/20 10/08/20 10/08/20 18:59 06:59 18:59 Intake Total 600 Output Total 1410 20 Balance 600 -1410 -20 Intake: Oral 600 Output: Drainage 10 20 Abdomen 10 20 Urine 1400 Other: Voiding Method Urinal Urinal # Voids 5 # Bowel Movements 1 1 - Labs CBC & Chem 7: 10/08/20 05:40 10/08/20 05:40 Labs: Abnormal Lab Results - Last 24 Hours (Table) 10/07/20 10/07/20 10/08/20 Range/Units 05:29 20:43 05:40 WBC 11.44 H (4.50-10.00) X 10*3/uL RBC 4.08 L (4.40-5.60) X 10*6/uL Hgb 12.3 L (13.0-17.0) g/dL Hct 37.1 L (39.6-50.0) % MPV 8.4 L (9.5-12.2) fL Immature Gran # 0.11 H (0.00-0.04) X 10*3/uL Neutrophils # 9.57 H (1.80-7.70) X 10*3/uL Glucose (70-110) mg/dL POC Glucose (mg/dL) 226 H (75-99) mg/dL Hemoglobin A1c 10.2 H (4.0-6.0) % Calcium (8.7-10.3) mg/dL 10/08/20 10/08/20 Range/Units 05:40 07:14 WBC (4.50-10.00) X 10*3/uL RBC (4.40-5.60) X 10*6/uL Hgb (13.0-17.0) g/dL Hct (39.6-50.0) % MPV (9.5-12.2) fL Immature Gran # (0.00-0.04) X 10*3/uL Neutrophils # (1.80-7.70) X 10*3/uL Glucose 231 H (70-110) mg/dL POC Glucose (mg/dL) 206 H (75-99) mg/dL Hemoglobin A1c (4.0-6.0) % Calcium 8.2 L (8.7-10.3) mg/dL
[2020-10-08 11:52] LABS: Glucose,Whole Blood 254 mg/dL (75-99)
[2020-10-08 13:24] VITALS: BMI 35.2
--- NOTE | 2020-10-08 14:08 | P.PN ---
Subjective Progress Note Date: 10/08/20 Acute appendicitis/ruptured appendicitis with abscess. Patient is a 50-year-old male with a known history of diabetes type 2 currently diet controlled presents to ER with complaints of right lower quadrant abdominal pain. Patient states that he has been having pain for the past 1 week. Patient is having on and off discomfort. Patient start to be constipated and took stool softeners. Since the pain is not improving he presents to ER for evaluation. Pain is 7 out of 10 in severity. Denied any diarrhea. Denies recent illnesses. On admission patient was febrile with T-max 100.3 respiration 14 blood pressure 144/99 pulse ox 96% on room air. CT of the abdomen pelvis showed thickening irregularity and inflammatory stranding at the appendix and proximal ascending colon. Suspected acute appendicitis. Right lower quadrant fluid and gas collection within the region of the abnormal appendix measures 4.5 x 3.7 x 6.2 cm. Laboratory showed WBC 14.7 hemoglobin 15.4 and platelets 435 Sodium 130 potassium 4.3 chloride 94 BUN 9 and creatinine 0.75 amylase lipase not elevated Troponin x1 - Urinalysis is negative for infection. 10/07/2020 Patient is currently resting in the bed comfortably. More awake alert and oriented. Feels better today. Patient did have T-max of 100.2 yesterday evening. Currently afebrile. Encourage incentive spirometry. Denied any complaints of chest pain or shortness of breath. Tolerating liquid diet. Laboratory data showed WBC count increased to 14.4 today. Sodium 130 potassium 5.1 chloride 96 BUN 30 and creatinine 0.8 and blood sugar is 233. Patient is being continued on insulin sliding scale. A1c level is 10.2 patient will be started on low-dose insulin. 10/08/2020 Patient is seen and evaluated and follow-up currently sitting up in the chair being closely monitored. Patient states he has been up and walking the halls and does have incentive spirometer at the bedside. Encourage incentive spirometer use at least 10 times every hour while awake along with increasing activity as tolerated. Encourage coughing and deep breathing as well. Continue to increase oral diet as tolerated. Blood sugars have been elevated and will continue to monitor Accu-Cheks before meals nature and continue with sliding scale along with long-acting. White blood count trending down at 11.44 and patient is afebrile. Will repeat labs and continue to monitor closely. Review of systems: Constitutional: No reports of fatigue, fever, or chills Cardiovascular: No reports of chest pain or palpitations Respiratory: No reports of shortness of breath, reports occasional cough GI: No reports of nausea, vomiting, or diarrhea, reports passing gas and bowel movements : No reports of dysuria or retention Neurovascular: No reports of weakness or numbness All medications have been reviewed Objective - Vital Signs Vital signs: Vital Signs Temp 98.4 F 10/08/20 08:28 Pulse 86 10/08/20 08:28 Resp 16 10/08/20 08:28 BP 120/74 10/08/20 08:28 Pulse Ox 93 L 10/08/20 08:28 Intake & Output 10/07/20 10/08/20 10/08/20 18:59 06:59 18:59 Intake Total 600 Output Total 1410 20 Balance 600 -1410 -20 Intake: Oral 600 Output: Drainage 10 20 Abdomen 10 20 Urine 1400 Other: Voiding Method Urinal Urinal # Voids 5 # Bowel Movements 1 1 - Exam Patient is lying in the bed comfortably, no acute distress, awake alert and oriented.. HEENT: Normocephalic. Neck is supple. Pupils reactive. Nostrils clear. Oral cavity is moist. Ears reveal no drainage. Neck reveals no JVD, carotid bruits, or thyromegaly. CHEST EXAMINATION: Trachea is central. Symmetrical expansion. Lung kelly clear to auscultation and percussion. Bibasilar diminished air entry. Mild dry cough on exam CARDIAC: Normal S1, S2 with no gallops. No murmurs ABDOMEN: Soft. Bowel sounds normal. No organomegaly. No abdominal bruits. Right lower quadrant tenderness on palpation. Extremities: reveal no edema. No clubbing or cyanosis Neurologically awake, alert, oriented x3 with well-coordinated movements. No focal deficits noted Skin: No rash or skin lesions. Psychiatric: Cooperative. Non-suicidal Musculoskeletal: No joint swelling or deformity. Normal range of motion. - Labs CBC & Chem 7: 10/08/20 05:40 10/08/20 05:40 Labs: Abnormal Lab Results - Last 24 Hours (Table) 10/07/20 10/07/20 10/07/20 Range/Units 05:29 05:29 05:29 WBC 14.49 H (4.50-10.00) X 10*3/uL RBC (4.40-5.60) X 10*6/uL Hgb (13.0-17.0) g/dL Hct (39.6-50.0) % Plt Count Comment A MPV 8.9 L (9.5-12.2) fL Immature Gran # 0.09 H (0.00-0.04) X 10*3/uL Neutrophils # 12.30 H (1.80-7.70) X 10*3/uL Eosinophils # 0.02 L (0.04-0.35) X 10*3/uL Sodium 130 L (135-145) mmol/L Glucose 233 H (70-110) mg/dL POC Glucose (mg/dL) (75-99) mg/dL Hemoglobin A1c 10.2 H (4.0-6.0) % Calcium 8.2 L (8.7-10.3) mg/dL 10/07/20 10/08/20 10/08/20 Range/Units 20:43 05:40 07:14 WBC 11.44 H (4.50-10.00) X 10*3/uL RBC 4.08 L (4.40-5.60) X 10*6/uL Hgb 12.3 L (13.0-17.0) g/dL Hct 37.1 L (39.6-50.0) % Plt Count Comment MPV 8.4 L (9.5-12.2) fL Immature Gran # 0.11 H (0.00-0.04) X 10*3/uL Neutrophils # 9.57 H (1.80-7.70) X 10*3/uL Eosinophils # (0.04-0.35) X 10*3/uL Sodium (135-145) mmol/L Glucose (70-110) mg/dL POC Glucose (mg/dL) 226 H 206 H (75-99) mg/dL Hemoglobin A1c (4.0-6.0) % Calcium (8.7-10.3) mg/dL Assessment and Plan Assessment: Fevers, max 100.2, likley due to atelectasis. Resolved now. Encourage incentive spirometry. Acute appendicitis/ruptured appendicitis with abscess. Status post laparoscopic appendectomy Sepsis secondary to above. Patient was febrile and had leukocytosis on admission. Hypovolemic hyponatremia, improved sodium is 135 Hyperglycemia with uncontrolled diabetes type 2. A1c level 10.2, continue sliding scale along with long-acting GI prophylaxis: Protonix DVT prophylaxis: Subcutaneous Lovenox Full code Plan: Patient is status post laparoscopic appendectomy with drain tube placement. Reported of 20 mL of sanguinous drainage from VIVIAN drain. Patient is continued on IV antibiotics in the form of Zosyn and will continue and monitor for any fevers or increase in white blood count. White blood count trending down and is 11.44 today, hemoglobin is stable at 12.3. Patient maintained on subcutaneous Lovenox and encouraged increased activity as tolerated along with continued use of incentive spirometer at least 10 times every hour while awake. Recommend to continue with Accu-Cheks before meals and at bedtime and continue with sliding scale along with long-acting. We'll continue to follow along closely with surgery and further recommendations to follow based on the clinical course of the patient. Follow-up CBC and BMP tomorrow. Thank you for this consultation.
[2020-10-08 16:41] LABS: Glucose,Whole Blood 217 mg/dL (75-99)
[2020-10-08] MEDS: HYDROcodone/APAP 5-325MG 1 EACH TAB PO PRN (18:19)
[2020-10-08 20:52] LABS: Glucose,Whole Blood 185 mg/dL (75-99)
[2020-10-09] MEDS: PIPERACILLIN-TAZOBACTAM 3.375 GM in SODIUM CHLORIDE 0.9% 100 ML IVPB SCH ×3 (02:28→19:11)
[2020-10-09] MEDS: SODIUM CHLORIDE 0.9% 1,000 ML IV SCH ×3 (02:28→17:33)
[2020-10-09 06:57] LABS: Glucose,Whole Blood 190 mg/dL (75-99)
[2020-10-09] MEDS: ENOXAPARIN 40 MG/0.4 ML SYRINGE SQ SCH (07:04)
[2020-10-09] MEDS: PANTOPRAZOLE 40 MG/10 ML VIAL IVP SCH (07:04)
[2020-10-09] MEDS: INSULIN ASPART (NovoLOG) 100 UNIT/ML VIAL SQ SCH ×4 (07:04→21:03)
[2020-10-09] MEDS: HYDROcodone/APAP 5-325MG 1 EACH TAB PO PRN ×2 (07:04→19:15)
[2020-10-09 08:46] LABS: Basophils % (A) 0 %; Eosinophils # (A) 0.1 k/uL (0-0.7); Eosinophils % (A) 1 %; HGB 12.7 gm/dL (13.0-17.5); Hypochromasia Slight; Lymphocytes % (A) 12 %; MCH 30.6 pg (25.0-35.0); MCHC 32.4 g/dL (31.0-37.0); MCV 94.4 fL (80.0-100.0); Mean Platelet Volume 6.9; Monocytes # (A) 0.4 k/uL (0-1.0); Monocytes % (A) 5 %; Neutrophils # (A) 6.7 k/uL (1.3-7.7); Neutrophils % (A) 80 %; Platelet Count 546 k/uL (150-450); RBC 4.14 m/uL (4.30-5.90); RDW 13.3 % (11.5-15.5); WBC 8.4 k/uL (3.8-10.6)
--- NOTE | 2020-10-09 11:18 | P.PN ---
Progress Note - Text Progress Note Date: 10/09/20 Patient feels slightly better today. On exam his vital signs are stable. Abdomen soft. Incision sites are clean and intact. VIVIAN drain still has some serosanguineous drainage. Status post laparoscopic appendectomy with abscess. Patient to receive IV antibiotics. With his be discharged home tomorrow.
[2020-10-09 12:14] LABS: Glucose,Whole Blood 161 mg/dL (75-99)
[2020-10-09 16:48] LABS: Glucose,Whole Blood 186 mg/dL (75-99)
[2020-10-09 20:35] LABS: Glucose,Whole Blood 180 mg/dL (75-99)
[2020-10-09] MEDS: INSULIN DETEMIR (LEVEMIR) 100 UNIT/ML SYR SQ SCH (21:04)
[2020-10-10] MEDS: SODIUM CHLORIDE 0.9% 1,000 ML IV SCH ×3 (00:55→14:43)
[2020-10-10] MEDS: PIPERACILLIN-TAZOBACTAM 3.375 GM in SODIUM CHLORIDE 0.9% 100 ML IVPB SCH ×3 (02:48→19:55)
[2020-10-10 06:53] LABS: Glucose,Whole Blood 178 mg/dL (75-99)
[2020-10-10] MEDS: PANTOPRAZOLE 40 MG/10 ML VIAL IVP SCH (07:13)
[2020-10-10] MEDS: ENOXAPARIN 40 MG/0.4 ML SYRINGE SQ SCH (07:13)
[2020-10-10] MEDS: INSULIN ASPART (NovoLOG) 100 UNIT/ML VIAL SQ SCH ×4 (07:13→20:21)
--- NOTE | 2020-10-10 12:27 | P.PN ---
Progress Note - Text Progress Note Date: 10/10/20 Patient feels better. On exam her vital signs are stable. Abdomen soft. Status post appendectomy for acute perforated appendicitis with abscess. Patient receive IV antibiotic. His be discharged home tomorrow
[2020-10-10 16:37] LABS: Glucose,Whole Blood 206 mg/dL (75-99)
[2020-10-10 20:19] LABS: Glucose,Whole Blood 220 mg/dL (75-99)
[2020-10-10] MEDS: HYDROcodone/APAP 5-325MG 1 EACH TAB PO PRN (20:20)
[2020-10-10] MEDS: INSULIN DETEMIR (LEVEMIR) 100 UNIT/ML SYR SQ SCH (20:22)
[2020-10-11] MEDS: PIPERACILLIN-TAZOBACTAM 3.375 GM in SODIUM CHLORIDE 0.9% 100 ML IVPB SCH ×2 (02:47→11:11)
[2020-10-11] MEDS: SODIUM CHLORIDE 0.9% 1,000 ML IV SCH ×3 (02:49→17:13)
[2020-10-11 06:47] LABS: Glucose,Whole Blood 200 mg/dL (75-99)
[2020-10-11] MEDS: INSULIN ASPART (NovoLOG) 100 UNIT/ML VIAL SQ SCH ×3 (07:45→17:14)
[2020-10-11 07:54] VITALS: RESP 18; TEMP 97.8
[2020-10-11] MEDS: PANTOPRAZOLE 40 MG/10 ML VIAL IVP SCH (07:55)
[2020-10-11] MEDS: ENOXAPARIN 40 MG/0.4 ML SYRINGE SQ SCH (07:55)
[2020-10-11 11:44] LABS: Glucose,Whole Blood 244 mg/dL (75-99)
[2020-10-11 14:53] VITALS: BP 143/71; PULSE 76
--- NOTE | 2020-10-11 15:59 | P.PN ---
Subjective Progress Note Date: 10/11/20 Acute appendicitis/ruptured appendicitis with abscess. Patient is a 50-year-old male with a known history of diabetes type 2 currently diet controlled presents to ER with complaints of right lower quadrant abdominal pain. Patient states that he has been having pain for the past 1 week. Patient is having on and off discomfort. Patient start to be constipated and took stool softeners. Since the pain is not improving he presents to ER for evaluation. Pain is 7 out of 10 in severity. Denied any diarrhea. Denies recent illnesses. On admission patient was febrile with T-max 100.3 respiration 14 blood pressure 144/99 pulse ox 96% on room air. CT of the abdomen pelvis showed thickening irregularity and inflammatory stranding at the appendix and proximal ascending colon. Suspected acute appendicitis. Right lower quadrant fluid and gas collection within the region of the abnormal appendix measures 4.5 x 3.7 x 6.2 cm. Laboratory showed WBC 14.7 hemoglobin 15.4 and platelets 435 Sodium 130 potassium 4.3 chloride 94 BUN 9 and creatinine 0.75 amylase lipase not elevated Troponin x1 - Urinalysis is negative for infection. 10/07/2020 Patient is currently resting in the bed comfortably. More awake alert and oriented. Feels better today. Patient did have T-max of 100.2 yesterday evening. Currently afebrile. Encourage incentive spirometry. Denied any complaints of chest pain or shortness of breath. Tolerating liquid diet. Laboratory data showed WBC count increased to 14.4 today. Sodium 130 potassium 5.1 chloride 96 BUN 30 and creatinine 0.8 and blood sugar is 233. Patient is being continued on insulin sliding scale. A1c level is 10.2 patient will be started on low-dose insulin. 10/08/2020 Patient is seen and evaluated and follow-up currently sitting up in the chair being closely monitored. Patient states he has been up and walking the halls and does have incentive spirometer at the bedside. Encourage incentive spirometer use at least 10 times every hour while awake along with increasing activity as tolerated. Encourage coughing and deep breathing as well. Continue to increase oral diet as tolerated. Blood sugars have been elevated and will continue to monitor Accu-Cheks before meals nature and continue with sliding scale along with long-acting. White blood count trending down at 11.44 and patient is afebrile. Will repeat labs and continue to monitor closely. 10/11/2020 Patient is seen and evaluated this morning stating he had some right lower quadrant abdominal tenderness that has subsided today and continues with large amounts of gas but no bowel movement since yesterday. Patient was also having some acid reflux and will add Pepcid twice daily. Patient also having difficulty in sleeping and brought in his CPAP machine and states he slept much better last night. Patient has been up and walking the halls and tolerating. Patient hemoglobin A1c is 10.2 and discussed with the patient about following up with primary care provider to discuss medications versus diet modification and possible insulin administration. Patient states within the last year he has lost quite a bit of weight with eliminating things from his diet and diet modification. Recommend follow-up on discharge. Vital signs are stable. Patient is afebrile. Review of systems: Constitutional: No reports of fatigue, fever, or chills Cardiovascular: No reports of chest pain or palpitations Respiratory: No reports of shortness of breath, reports occasional cough GI: No reports of nausea, vomiting, or diarrhea, reports passing gas and having some mild right-sided lower abdominal pain last night : No reports of dysuria or retention Neurovascular: No reports of weakness or numbness All medications have been reviewed Objective - Vital Signs Vital signs: Vital Signs Temp 97.8 F 10/11/20 07:16 Pulse 81 10/11/20 07:16 Resp 18 10/11/20 07:16 BP 143/81 10/11/20 07:16 Pulse Ox 94 L 10/11/20 07:16 Intake & Output 10/10/20 10/11/20 10/11/20 18:59 06:59 18:59 Output Total 20 1200 Balance -20 -1200 Output: Drainage 20 Abdomen 20 Urine 1200 Other: Voiding Method Urinal - Exam Patient is sitting up in the chair comfortably, no acute distress, awake alert and oriented.. HEENT: Normocephalic. Neck is supple. Pupils reactive. Nostrils clear. Oral cavity is moist. Ears reveal no drainage. Neck reveals no JVD, carotid bruits, or thyromegaly. CHEST EXAMINATION: Trachea is central. Symmetrical expansion. Lung kelly clear to auscultation and percussion. Bibasilar diminished air entry. Mild dry cough on exam CARDIAC: Normal S1, S2 with no gallops. No murmurs ABDOMEN: Soft. Bowel sounds normal. No organomegaly. No abdominal bruits. Right lower quadrant tenderness on palpation. Extremities: reveal no edema. No clubbing or cyanosis Neurologically awake, alert, oriented x3 with well-coordinated movements. No focal deficits noted Skin: No rash or skin lesions. Psychiatric: Cooperative. Non-suicidal Musculoskeletal: No joint swelling or deformity. Normal range of motion. - Labs CBC & Chem 7: 10/09/20 07:38 10/08/20 05:40 Labs: Abnormal Lab Results - Last 24 Hours (Table) 10/10/20 10/10/20 10/11/20 Range/Units 16:36 20:16 06:45 POC Glucose (mg/dL) 206 H 220 H 200 H (75-99) mg/dL Assessment and Plan Assessment: Fevers, max 100.2, likley due to atelectasis. Resolved now. Encourage incentive spirometry. Acute appendicitis/ruptured appendicitis with abscess. Status post laparoscopic appendectomy Sepsis secondary to above. Patient was febrile and had leukocytosis on admission. Hypovolemic hyponatremia, improved Hyperglycemia with uncontrolled diabetes type 2. A1c level 10.2 GI prophylaxis: Protonix DVT prophylaxis: Subcutaneous Lovenox Full code Plan: Recommend to continue with current medications and management. Continue to i ncrease activity as tolerated. Recommend close outpatient follow-up with primary care provider to discuss A1c of 10.2 and possibly starting diabetic medications along with insulins. Patient is afebrile and labs are stable. Vital signs stable. Will continue to follow along closely with surgery during hospitalization. Thank you for this consultation. Patient is anticipating being discharged today.
--- NOTE | 2020-10-11 17:29 | P.DS ---
Providers Date of admission: 10/06/20 15:32 Expected date of discharge: 10/11/20 Attending physician: Sandeep Stanley Consults: 10/05/20 21:03 Consult Physician Routine Consulting Provider: Brenda Villanueva Consult Reason/Comments: Medical management Do you want consulting provider notified?: Yes Primary care physician: Julius Coyle DO Hospital Course: This is a 50-year-old male who was admitted to the hospital for perforated appendicitis with abscess. Patient underwent laparoscopic appendectomy. Patient did well postoperative. Please see hospital chart for details. Procedures: Laparoscopic appendectomy Patient Condition at Discharge: Good Plan - Discharge Summary Discharge Rx Participant: No New Discharge Prescriptions: New Famotidine [Pepcid] 20 mg PO BID #60 tablet Docusate [Colace] 100 mg PO BID #20 capsule Ibuprofen [Motrin] 600 mg PO Q6HR PRN #40 tab PRN Reason: Pain oxyCODONE HCL [OxyIR] 5 mg PO Q6H PRN 3 Days #10 tab PRN Reason: Pain Acetaminophen Tab [Tylenol] 650 mg PO Q6H #30 tab Levofloxacin [Levaquin] 500 mg PO DAILY 10 Days #10 tab metroNIDAZOLE [Flagyl] 500 mg PO Q8HR 7 Days #21 tab metFORMIN HCL [Glucophage] 500 mg PO BID 30 Days #60 tab Continue Aspirin EC [Ecotrin Low Dose] 81 mg PO DAILY Discharge Medication List Aspirin EC [Ecotrin Low Dose] 81 mg PO DAILY 10/05/20 [History] Acetaminophen Tab [Tylenol] 650 mg PO Q6H #30 tab 10/11/20 [Rx] Docusate [Colace] 100 mg PO BID #20 capsule 10/11/20 [Rx] Famotidine [Pepcid] 20 mg PO BID #60 tablet 10/11/20 [Rx] Ibuprofen [Motrin] 600 mg PO Q6HR PRN #40 tab 10/11/20 [Rx] Levofloxacin [Levaquin] 500 mg PO DAILY 10 Days #10 tab 10/11/20 [Rx] metFORMIN HCL [Glucophage] 500 mg PO BID 30 Days #60 tab 10/11/20 [Rx] metroNIDAZOLE [Flagyl] 500 mg PO Q8HR 7 Days #21 tab 10/11/20 [Rx] oxyCODONE HCL [OxyIR] 5 mg PO Q6H PRN 3 Days #10 tab 10/11/20 [Rx] Follow up Appointment(s)/Referral(s): Sandeep Stanley MD [STAFF PHYSICIAN] - 10/21/20 1:00 pm Julius Coyle DO [Primary Care Provider] - 1-2 days Patient Instructions/Handouts: James-Acuña Drain Care (DC), Laparoscopic Appendectomy (GEN) Activity/Diet/Wound Care/Special Instructions: Activity Limited until follow-up Follow-up with primary care provider on discharge Continue with diet modification and consistent carb diet Discussed with primary care provider as hemoglobin A1c is 10.2 Start with metformin 500 twice daily and follow-up with primary care provider this week to discuss Continue with medications as prescribed Continue with antibiotics until finished Prescription sent to [facility] Discharge Disposition: HOME SELF-CARE
== END 2020-10-11 17:17 | disposition home or self-care (01) | DRG 853 ==
LOC: EC 15:03 → 4SSUR 20:08 → OBSVTOIN 10-06 15:32
PROVIDERS: ADMIT Surgery; ATTEND Surgery
PROC: 0DTJ4ZZ Resection of Appendix, Percutaneous Endoscopic Approach (ICD-10-PCS; principal; 2020-10-05 20:00)
DX: A41.9 Sepsis, unspecified organism (principal); K35.33 Acute appendicitis with perforation, localized peritonitis, and gangrene, with abscess; E87.1 Hypo-osmolality and hyponatremia; J98.11 Atelectasis; E11.65 Type 2 diabetes mellitus with hyperglycemia; E86.0 Dehydration; E86.1 Hypovolemia; K21.9 Gastro-esophageal reflux disease without esophagitis; K59.00 Constipation, unspecified; Z79.82 Long term (current) use of aspirin
CPT/HCPCS: 36415; 74177; 80048; 80053; 81001; 82150; 83036; 83605; 83690; 84484; 85025; 88304; 93005; 94760; 96360; 99285

== ENCOUNTER → 2021-01-19 | Outpatient (CLI) | payer SELFPAY ==
[2021-01-19 08:30] LABS: African American GFR (CKD) >90 (>60 ml/min/1.73 sqM); Blood Urea Nitrogen 17 mg/dL (9-20); Non-African American GFR(CKD) >90 (>60 ml/min/1.73 sqM)
--- NOTE | 2021-01-19 12:36 | CT ---
EXAMINATION TYPE: CT abdomen pelvis w con DATE OF EXAM: 01/19/2021 COMPARISON: CT 10/05/2020 HISTORY: diverticulitis CT DLP: 2692 mGycm Automated exposure control for dose reduction was used. TECHNIQUE: Helical acquisition of images from the lung bases through the pelvis have been completed. CONTRAST: Performed with Oral Contrast and with IV Contrast, patient injected with 100 mL of Isovue 300. FINDINGS: LUNG BASES: Calcified nodule right lower lobe. AORTA: No significant abnormality is appreciated. LIVER/GB: Liver shows low attenuation likely due to hepatic steatosis, liver is enlarged. Gallbladder is unremarkable. PANCREAS: No significant abnormality is seen. SPLEEN: Scattered granuloma present within the spleen. ADRENALS: No significant abnormality is seen. KIDNEYS: No significant abnormality is seen. REPRODUCTIVE ORGANS: Prostate is enlarged BOWEL: The previously identified inflammatory change associated with the right colon has improved ho wever there is a diverticulum present, coronal image #68, axial image 59 with some associated inflamm atory change. FREE AIR: No Free Air visible. ASCITES: None visible. PELVIC ADENOPATHY: None visualized. RETROPERITONEAL ADENOPATHY: No Retroperitoneal Adenopathy visible. URINARY BLADDER: Thickening the urinary bladder wall again noted possibly due to chronic outlet obst ruction. OSSEOUS STRUCTURES: No significant abnormality is seen. IMPRESSION: CHRONIC DIVERTICULITIS. HEPATIC STEATOSIS, HEPATOMEGALY. SOME INTERVAL IMPROVEMENT IN INFLAMMATION SE EN ON PRIOR EXAM. PROSTATIC ENLARGEMENT AND PROBABLE CHRONIC BLADDER OUTLET OBSTRUCTION, CORRELATE TO EXCLUDE CYSTITIS.
== END | disposition home or self-care (01) ==
LOC: RADCTMAIN 07:30
PROVIDERS: ATTEND Surgery
DX: K57.32 Diverticulitis of large intestine without perforation or abscess without bleeding (principal); K76.0 Fatty (change of) liver, not elsewhere classified; R16.0 Hepatomegaly, not elsewhere classified; N40.0 Benign prostatic hyperplasia without lower urinary tract symptoms
CPT/HCPCS: 82565; 84520; 74177; 36415; Q9967